=== PATIENT | female | born 1950 | race Caucasian/White ===

== ENCOUNTER 2022-07-24 22:01 | Inpatient (IN) ==
[2022-07-25] MEDS ORDERED: Melatonin 3 MG TABLET PO PRN (03:11)
[2022-07-25] MEDS ORDERED: Naloxone 0.4 MG/ML INJ IVP PRN (03:11)
[2022-07-25] MEDS ORDERED: Ondansetron 4 MG/2 ML VIAL IVP PRN (03:11)
[2022-07-25] MEDS ORDERED: Acetaminophen 325 MG TABLET PO PRN (03:11)
[2022-07-25] MEDS ORDERED: *HR* Dextrose 50 % in Water (Syg) 50 ML SYRINGE IVP PRN (03:45)
[2022-07-25] MEDS ORDERED: Dextrose Gel 15 GM/37.5 ML TUBE PO PRN ×2 (03:45)
[2022-07-25] MEDS ORDERED: D5% in Water 1,000 ML IVC PRN (03:45)
[2022-07-25] MEDS: *HR* OxyCODONE Immed Rel 5 MG TABLET PO PRN ×3 (03:59→20:35)
[2022-07-25] MEDS: traZODone 50 MG TABLET PO SCH ×2 (04:00→20:35)
[2022-07-25] MEDS ORDERED: Ipratropium/Albuterol Neb 3 ML IH PRN (04:58)
[2022-07-25 06:10] LABS: Basophils % 0.5 %; Eosinophils # 0.1 K/mcL (0.0-0.6); Eosinophils % 0.9 %; Hematocrit 37.1 % (35.3-44.9); Hemoglobin 11.9 g/dL (11.5-15.4); Immature Granulocytes % 0.3 % (0-4); Lymphocytes # 1.9 K/mcL (0.6-4.6); Lymphocytes % 24.6 %; Mean Corpuscular HGB Conc 32.1 g/dL (31.6-35.5); Mean Corpuscular Hemoglobin 31.5 pg (28.0-33.3); Mean Corpuscular Volume 98.1 fL (83.0-100.0); Mean Platelet Volume 9.8 fL (9.4-12.4); Monocytes # 0.6 K/mcL (0.0-1.3); Monocytes % 7.6 %; Neutrophils # 5.1 K/mcL (1.6-8.9); Platelet Count 281 K/mcL (140-400); Red Blood Count 3.78 M/mcL (3.82-4.97); Segmented Neutrophils % 66.1 %; White Blood Count 7.7 K/mcL (4.3-11.1)
[2022-07-25 06:29] LABS: BUN/Creatinine Ratio 43 (6-26); Blood Urea Nitrogen 23 mg/dL (8-23); Carbon Dioxide 27 mEq/L (23-29); Chloride 105 mEq/L (98-107); Glucose 98 mg/dL (70-105); Osmolality,Calculated 290 (280-300); Potassium 3.9 mEq/L (3.5-5.1); Sodium 138 mEq/L (136-145)
[2022-07-25] MEDS: lisinopriL 20 MG TABLET PO SCH (07:37)
[2022-07-25] MEDS: estradioL 0.5 MG TABLET PO SCH (07:37)
[2022-07-25] MEDS: Aspirin 81 MG TAB.CHEW PO SCH (07:37)
[2022-07-25] MEDS: cefTRIAXone 1,000 MG in 0.9 % Sodium Chloride Mini Bag 100 ML IVPB SCH (07:37)
[2022-07-25] MEDS: *HR* HYDROcodone/Acet 5/325 mg TABLET PO PRN ×2 (07:45→23:50)
[2022-07-25] MEDS: ALPRAZolam 0.5 MG TABLET PO PRN (20:38)
[2022-07-26 01:35] LABS: Basophils # 0.1 K/mcL (0.0-0.2); Basophils % 0.7 %; Eosinophils # 0.1 K/mcL (0.0-0.6); Eosinophils % 1.7 %; Hematocrit 35.8 % (35.3-44.9); Hemoglobin 11.5 g/dL (11.5-15.4); Immature Granulocytes % 0.3 % (0-4); Lymphocytes # 2.4 K/mcL (0.6-4.6); Lymphocytes % 31.8 %; Mean Corpuscular HGB Conc 32.1 g/dL (31.6-35.5); Mean Corpuscular Hemoglobin 31.9 pg (28.0-33.3); Mean Corpuscular Volume 99.4 fL (83.0-100.0); Mean Platelet Volume 9.6 fL (9.4-12.4); Monocytes # 0.7 K/mcL (0.0-1.3); Monocytes % 8.7 %; Neutrophils # 4.3 K/mcL (1.6-8.9); Platelet Count 266 K/mcL (140-400); Red Cell Distribution Width 12.9 % (11.5-14.5); Segmented Neutrophils % 56.8 %; White Blood Count 7.6 K/mcL (4.3-11.1)
[2022-07-26] MEDS: *HR* OxyCODONE Immed Rel 5 MG TABLET PO PRN ×2 (06:54→20:28)
[2022-07-26] MEDS: ALPRAZolam 0.5 MG TABLET PO PRN ×3 (06:54→20:28)
[2022-07-26] MEDS: cefTRIAXone 1,000 MG in 0.9 % Sodium Chloride Mini Bag 100 ML IVPB SCH (08:29)
[2022-07-26] MEDS: Aspirin 81 MG TAB.CHEW PO SCH (08:29)
[2022-07-26] MEDS: estradioL 0.5 MG TABLET PO SCH (08:29)
[2022-07-26] MEDS: lisinopriL 20 MG TABLET PO SCH (08:29)
[2022-07-26] MEDS: Nicotine 21 MG PATCH.TD24 TD SCH (12:12)
[2022-07-26] MEDS: *HR* HYDROcodone/Acet 5/325 mg TABLET PO PRN (15:26)
[2022-07-26] MEDS ORDERED: Ketorolac 30 MG/ML VIAL IVP ONE (19:33)
[2022-07-26] MEDS: traZODone 50 MG TABLET PO SCH (20:28)
[2022-07-27 02:38] LABS: Basophils # 0.1 K/mcL (0.0-0.2); Basophils % 0.8 %; Eosinophils # 0.1 K/mcL (0.0-0.6); Eosinophils % 1.2 %; Hematocrit 37.7 % (35.3-44.9); Hemoglobin 12.1 g/dL (11.5-15.4); Immature Granulocytes % 0.3 % (0-4); Lymphocytes # 2.4 K/mcL (0.6-4.6); Lymphocytes % 31.8 %; Mean Corpuscular HGB Conc 32.1 g/dL (31.6-35.5); Mean Corpuscular Hemoglobin 32.2 pg (28.0-33.3); Mean Corpuscular Volume 100.3 fL (83.0-100.0); Mean Platelet Volume 9.5 fL (9.4-12.4); Monocytes # 0.7 K/mcL (0.0-1.3); Monocytes % 9.3 %; Neutrophils # 4.2 K/mcL (1.6-8.9); Platelet Count 267 K/mcL (140-400); Red Blood Count 3.76 M/mcL (3.82-4.97); Red Cell Distribution Width 12.6 % (11.5-14.5); Segmented Neutrophils % 56.6 %; White Blood Count 7.4 K/mcL (4.3-11.1)
[2022-07-27] MEDS ORDERED: Iopamidol - 370 500 ML MLS IVP ONE (07:23)
[2022-07-27] MEDS: lisinopriL 20 MG TABLET PO SCH (08:47)
[2022-07-27] MEDS: *HR* OxyCODONE Immed Rel 5 MG TABLET PO PRN (08:47)
[2022-07-27] MEDS: cefTRIAXone 1,000 MG in 0.9 % Sodium Chloride Mini Bag 100 ML IVPB SCH (08:48)
[2022-07-27] MEDS: Nicotine 21 MG PATCH.TD24 TD SCH (08:48)
[2022-07-27] MEDS: estradioL 0.5 MG TABLET PO SCH (08:48)
[2022-07-27] MEDS: ALPRAZolam 0.5 MG TABLET PO PRN (08:50)
[2022-07-27 10:44] VITALS: BP 149/74; PULSE 77; TEMP 98.6; O2SAT 91
[2022-07-27] MEDS ORDERED: Flu Vac QV 22-23 (6MOS UP)/PF 0.5 ML SYRINGE IM ONE (13:21)
== END 2022-07-27 14:39 | disposition home health service (06) | DRG 690 ==
LOC: 3ANU → SUATTDRO 07-25 12:50
PROVIDERS: ADMIT Internal Medicine; ATTEND Internal Medicine